=== PATIENT | female | born 1985 | race Caucasian/White ===

== ENCOUNTER 2020-01-09 20:48 | Emergency (ER) | payer BC, OTHER ==
[~2020-01-09] VITALS: Ht 172.7 cm; Wt 97.5 kg
[~2020-01-09 20:48] MED LIST: CYCLOBENZAPRINE10 MG PO; PERCOCET 5-3251 EACH PO
--- OUTSIDE RECORDS SUMMARY | 2020-01-09 20:50 | XMS ---
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 EGurjit VISIT COUNT (12 MO.) [address] [place] [address] D[facility] Tiwari TOTAL 2 NOTE: Visits indicate total known visits. ED/UCC VISIT TRACKING (12 MO.) 01/09/2020 20:48 [facility] [place] TYPE: Emergency COMPLAINT: - FACIAL SWELLING AND PAIN 10/06/2019 20:50 [facility] [place] TYPE: Emergency DIAGNOSES: - GLASS IN KNUCKLE - Abrasion of unspecified finger, initial encounter INPATIENT VISIT TRACKING (12 MO.) No inpatient visits to display in this time frame [id number]
[2020-01-09] MEDS ORDERED: BUPROPION XL300 MG PO (21:03)
[2020-01-09] MEDS ORDERED: AMPHETAMINE SAL15 MG PO (21:03)
[2020-01-09] MEDS ORDERED: BUPRENORPHINE HC8 MG SL (21:04)
[2020-01-09] MEDS ORDERED: VALACYCLOVIR1000 MG PO (22:13)
== END 2020-01-09 22:20 | disposition home or self-care (01) ==
LOC: ED 20:48
DX: G50.0 Trigeminal neuralgia (principal); G43.909 Migraine, unspecified, not intractable, without status migrainosus; Z87.891 Personal history of nicotine dependence; Z88.6 Allergy status to analgesic agent; Z79.899 Other long term (current) drug therapy
CPT/HCPCS: 99283

== ENCOUNTER 2022-07-03 19:56 | Emergency (ER) | payer OTHER ==
[~2022-07-03] VITALS: Ht 172.7 cm; Wt 119.0 kg
[~2022-07-03 19:56] MED LIST changes: +AMPHETAMINE SAL15 MG PO; +BUPRENORPHINE HC8 MG SL; +BUPROPION XL300 MG PO; +VALACYCLOVIR1000 MG PO
--- OUTSIDE RECORDS SUMMARY | 2022-07-03 19:58 | XMS ---
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 EGurjit VISIT COUNT (12 MO.) 2 [facility] TOTAL 2 NOTE: Visits indicate total known visits. ED/UCC VISIT TRACKING (12 MO.) 07/03/2022 19:56 [facility] [place] TYPE: Emergency COMPLAINT: - SKIN PROBLEM 07/03/2022 19:03 [facility] [place] TYPE: Emergency COMPLAINT: - SKIN PROBLEM INPATIENT VISIT TRACKING (12 MO.) No inpatient visits to display in this time frame [id number]
[2022-07-03] MEDS ORDERED: BACTRIM DS TAB1 EACH PO (21:18)
[2022-07-03] MEDS ORDERED: PREGABALIN200 MG PO (21:23)
[2022-07-03] MEDS ORDERED: ABILIFY10 MG PO (21:24)
[2022-07-03] MEDS ORDERED: HYDROCODON-ACE1 EA10 PO (21:36)
[2022-07-04] MEDS ORDERED: BACTRIM DS TAB1 EACH PO (00:39)
== END 2022-07-03 22:15 | disposition home or self-care (01) ==
LOC: ED 19:56
DX: L02.413 Cutaneous abscess of right upper limb (principal); L03.113 Cellulitis of right upper limb; G43.909 Migraine, unspecified, not intractable, without status migrainosus; Z87.891 Personal history of nicotine dependence; Z88.8 Allergy status to other drugs, medicaments and biological substances; Z88.5 Allergy status to narcotic agent; Z79.899 Other long term (current) drug therapy
CPT/HCPCS: 99283; A9270